=== PATIENT | female | born 1965 | race Caucasian/White ===

== ENCOUNTER 2021-06-15 10:36 | Outpatient (CLI) | payer OTHER, MEDICARE, SELFPAY ==
[2021-06-15 11:09] LABS: Source Nasal/Nares
[2021-06-15 17:27] LABS: COVID-19 PCR Negative (Negative)
== END 2021-06-15 10:37 | disposition home or self-care (01) ==
LOC: LBO 10:36
PROVIDERS: PCP Family Medicine; Visit Provider Podiatrist
DX: Z20.822 Contact with and (suspected) exposure to COVID-19 (principal)
CPT/HCPCS: 87635

== ENCOUNTER 2021-06-18 07:32 | Day surgery (SDC) | payer OTHER, MEDICARE, SELFPAY ==
--- NOTE | 2021-06-17 19:37 | W.PM.HP.N ---
Date of service: 06/18/21 Time of Service: 19:37 History of Present Illness History of Present Illness Chief Complaint: symptomatic left bunion deformity Narrative: 55 YO female with increasing pain associated with herleft bunion deformity. Pain is intrfering with shoe gear and daily activities. Non surgical treatments have failed to provide relief from symptoms. [facility] Medical History Autoimmune hypothyroidism Chronic fatigue Pt. denies this History of basal cell carcinoma (BCC) History of Mohs micrographic surgery for skin cancer Hx of endometriosis Hx of systemic lupus erythematosus (SLE) Hx of traumatic brain injury 1994-from fall Postmenopausal HRT (hormone replacement therapy) Psychophysiological insomnia Rheumatoid arthritis Seasonal affective disorder Sjogren's syndrome Surgical History Hx of appendectomy Hx of cholecystectomy Hx of hysterectomy Social History Smoking/Tobacco Use Status: Never Smoking risk assessment performed?: Yes Alcohol Intake: never Drug use: Never Substance use type: does not use Do you feel safe at home: Yes Do you feel safe in your relationship?: Yes Meds Allergies and Home Medications Allergies Allergy/AdvReac Type Severity Reaction Status Date / Time Egg Derived Allergy Intermediate Skin Rash Unverified 06/16/21 13:11 levofloxacin Allergy Intermediate Skin Rash Unverified 06/16/21 13:11 Home Medications Medication Instructions Recorded Confirmed Type adalimumab [Humira Pen] 40 mg SUBCUT DIRECTED 06/16/21 06/16/21 History amitriptyline 50 - 150 mg PO HS PRN 06/16/21 06/16/21 History conjugated estrogens [Premarin] 0.625 mg PO DAILY 06/16/21 06/16/21 History cyclobenzaprine 5 mg PO TID PRN 06/16/21 06/16/21 History duloxetine 30 mg PO DAILY 06/16/21 06/16/21 History folic acid 2 mg PO DAILY 06/16/21 06/16/21 History gabapentin 900 mg PO HS PRN 06/16/21 06/16/21 History ibuprofen 600 mg PO Q8H PRN 06/16/21 06/16/21 History leucovorin calcium 5 mg PO DAILY 06/16/21 06/16/21 History levothyroxine 112 mcg PO DAILY 06/16/21 06/16/21 History methotrexate sodium [Methotrexate 20 mg PO QWEEK 06/16/21 06/16/21 History (Anti-Rheumatic)] metoclopramide HCl [Reglan] 5 mg PO BID PRN 06/16/21 06/16/21 History sumatriptan succinate 100 mg PO DAILY PRN 06/16/21 06/16/21 History temazepam 15 mg PO DAILY PRN 06/16/21 06/16/21 History trazodone 50 - 150 mg PO HS PRN 06/16/21 06/16/21 History Exam Narrative Exam Narrative: 55 YO female in no acute distress Heads Normo cephalic eyes clear, PERLLA Hearing adequate Uvula is midline Lungs are clear Heart had RRR, no gallops, rubs or murmurs noted Peripheral pulses are 2/4, cft< 3 sec, no edema Muslce groups are 5/5 Large HAV defomity noted left foot Neurologically intact Impressions: HAV deformity left foot Plan: Domi is going to the OR for surgical correction of the left bunion deformity. She understands risks and complications associated with surgery including pain, scarring, infection, over or under correction of the deformity, nerve damage, malunion, delayed union, nonunion of the osteotomy, difficulty tolerating the hardware and the possibility of revision surgery. Informed consent has been obtained.
[2021-06-18 07:40] VITALS: BP 160/90; PULSE 94; TEMP 36.8; O2SAT 99
[2021-06-18] MEDS: Lactated Ringers 1,000 ML 80 ML IV (08:12)
--- NOTE | 2021-06-18 08:40 | W.ANESPRE ---
General Info Date of Service Date Performed: 06/18/21 Height: 5 ft 5 in Weight: 72.2 kg Body Mass Index (BMI): 26.4 Surgical Procedure: Operation Date: 06/18/21 09:10 Proposed Procedures Side Surgeon p Bunionectomy,opening wedge Left Roosevelt Dwain Herr DPM Meds Allergies and Home Medications Allergies Allergy/AdvReac Type Severity Reaction Status Date / Time Egg Derived Allergy Intermediate Skin Rash Unverified 06/18/21 07:45 levofloxacin Allergy Intermediate Skin Rash Unverified 06/18/21 07:45 Home Medication Medication Instructions Recorded adalimumab [Humira Pen] 40 mg SUBCUT DIRECTED 06/16/21 amitriptyline 50 - 150 mg PO HS PRN 06/16/21 conjugated estrogens [Premarin] 0.625 mg PO DAILY 06/16/21 cyclobenzaprine 5 mg PO TID PRN 06/16/21 duloxetine 30 mg PO DAILY 06/16/21 folic acid 2 mg PO DAILY 06/16/21 gabapentin 900 mg PO HS PRN 06/16/21 ibuprofen 600 mg PO Q8H PRN 06/16/21 leucovorin calcium 5 mg PO DAILY 06/16/21 levothyroxine 112 mcg PO DAILY 06/16/21 methotrexate sodium [Methotrexate 20 mg PO QWEEK 06/16/21 (Anti-Rheumatic)] metoclopramide HCl [Reglan] 5 mg PO BID PRN 06/16/21 sumatriptan succinate 100 mg PO DAILY PRN 06/16/21 temazepam 15 mg PO DAILY PRN 06/16/21 trazodone 50 - 150 mg PO HS PRN 06/16/21 Current Visit Medications: Current Medications Generic Name Dose Route Start Last Admin Trade Name Freq PRN Reason Stop Dose Admin Ringer's Solution 1,000 mls @ 80 mls/hr 06/18/21 06:00 06/18/21 08:12 IV 07/17/21 23:59 80 mls/hr INFUSION NALINI Administration Sodium Chloride 500 mls @ 0 mls/hr 06/18/21 06:00 Saline 500ml Bag IV PRN PRN As Directed Cefazolin Sodium/Dextrose 1 gm in 50 mls @ 100 mls/hr 06/18/21 06:00 Ancef Duplex IVPB PREOP NALINI IV Miscellaneous Supplies 1 each 06/18/21 06:00 Iv Access IV 01/08/22 23:59 DIRECTED [facility] IV Miscellaneous Supplies 1 each 06/18/21 06:00 Iv Access IV DIRECTED NALINI Povidone Iodine 0 ml 06/18/21 06:00 Povidone-Iodine Soln. 118 Ml Btl TP DIRECTED NALINI Sodium Chloride 0 ml 06/18/21 06:00 Normal Saline Flush 10 Ml Syr IV 07/17/21 23:59 PRN PRN Sodium Chloride 0 ml 06/18/21 06:00 Normal Saline 10 Ml Vial IJ 07/17/21 23:59 DIRECTED PRN Sodium Chloride 0 ml 06/18/21 06:00 Normal Saline Flush 10 Ml Syr IVP PRN PRN Sterile Water 0 ml 06/18/21 06:00 Water,Injection,Sterile 10 Ml Vial IJ 07/17/21 23:59 DIRECTED PRN PFSH Medical History Medical History Autoimmune hypothyroidism Chronic fatigue Pt. denies this History of basal cell carcinoma (BCC) History of Mohs micrographic surgery for skin cancer Hx of endometriosis Hx of systemic lupus erythematosus (SLE) Hx of traumatic brain injury 1994-from fall Postmenopausal HRT (hormone replacement therapy) Psychophysiological insomnia Rheumatoid arthritis Seasonal affective disorder Sjogren's syndrome Surgical History Surgical History Hx of appendectomy Hx of cholecystectomy Hx of hysterectomy Tobacco Smoking/Tobacco Use Status: Never Alcohol Alcohol Intake: never Substance Use Substance use: Never Substance use type: does not use Vital Signs and Lab Results Vital Signs Most Recent Vital Signs in EMR: Most Recent Vital Signs Temp Pulse BP Pulse Ox 36.8 C 94 H 160/90 H 99 06/18/21 07:40 06/18/21 07:40 06/18/21 07:40 06/18/21 07:40 Lab Results Blood Type / Crossmatch: No Data to Display Complete Blood Count: No Data to Display Complete Metabolic Panel: No Data to Display Liver Function Panel: No Data to Display Coagulation Panel: No Data to Display Cardiac Panel: No Data to Display Arterial Blood Gas: No Data to Display Venous Blood Gas: No Data to Display Pancreas Panel: No Data to Display Thyroid Panel: No Data to Display Infectious Disease: Coronavirus (COVID-19)(PCR) Negative (Negative) 06/15/21 10:30 06/15/21 Coronavirus 2019 Source Nasal/Nares 06/15/21 10:30 06/15/21 Blood Cultures: No Data to Display Toxicology Panel: No Data to Display Panel: No Data to Display Anesthesia Assessment and Plan Anesthesia History Personal History: No History of Anesthesia Complications Family History: No Family History of Anesthesia Complications Exercise Tolerance Exercise Tolerance: Metabolic Equivalents>4 Pertinent Negatives Pertinent Negatives: No Symptoms of GERD, No Major Cardiovascular Symptoms or Complaints and No Major Pulmonary Symptoms or Complaints Cardiac & Pulmonary Exam Cardiac Exam: Normal S1/S2 Heart Sounds Pulmonary Exam: Clear Bilateral Breath Sounds Implantable Cardiac Device Does patient have a Pacemaker or an ICD?: No Airway Exam Known Difficult Airway: No Mallampati Class: 1 Mouth Opening: Normal (> 3cm) Thyromental Distance: Greater than 3 cm Neck Range of Motion: Full ROM Neck Circumference: Normal Teeth Condition: Normal Dentition ASA Classification ASA Score: ASA 2 Emergency Case?: No NPO Status NPO Status: NPO Clears >2 hours, Solids >8 hours Status Status: History of Hysterectomy Anesthesia Plan Resuscitation Status: Full Code Anesthesia Technique: General Anesthesia Airway Planned: Natural Airway Monitors Used: Standard Monitors
[2021-06-18 08:41] VITALS: BMI 26.4
--- NOTE | 2021-06-18 10:00 | DI.RAD_ITS ---
Exam(s) XR FOOT LT LIMITED EXAM: XR FOOT LT LIMITED CLINICAL HISTORY: LEFT FOOT BUNIONECTOMY TECHNIQUE: 2D and realtime digital imaging was performed. CONTRAST MATERIAL: Refer to procedure report. COMPARISON: No exams were available for comparison FINDINGS: Fluoroscopy was provided for Dr. Herr during the performance of a left foot bunionectomy. Please refer to the procedure report for complete details. Ka,r=0.0378 mGy IMPRESSION: RADIATION DOSE DELIVERED:
[2021-06-18] MEDS: Lidocaine 1% Multi-Dose 50 ML VIAL (10:57)
[2021-06-18] MEDS: Bupivacaine 0.5% Pres-Free 30 ML VIAL (10:57)
--- NOTE | 2021-06-18 11:54 | W.PM.DSUDISC ---
Discharge Plan Disposition Patient Disposition: HOME Condition: Good Discharge Details Reason For Visit: Correction left HAV deformity Attending Provider: Roosevelt Herr Primary Care Provider: ,Local Home Meds and New Rx's Prescriptions: New oxycodone-acetaminophen 5-325 mg tablet 1 tab PO Q6H PRN (Reason: pain) Qty: 14 RF: 0 ibuprofen 600 mg tablet 600 mg PO Q6H PRN (Reason: Pain and inflammation) Qty: 60 RF: 1 Continued trazodone 50 mg Tablet 50 - 150 mg PO HS PRN (Reason: Sleep) RF: 0 sumatriptan succinate 100 mg Tablet 100 mg PO DAILY PRNRF: 0 amitriptyline 50 mg Tablet 50 - 150 mg PO HS PRN (Reason: Sleep) RF: 0 metoclopramide HCl [Reglan] 5 mg Tablet 5 mg PO BID PRN (Reason: Nausea) RF: 0 temazepam 15 mg Capsule 15 mg PO DAILY PRN (Reason: Sleep) RF: 0 methotrexate sodium 2.5 mg Tablet 20 mg PO QWEEK RF: 0 Premarin 0.625 mg Tablet 0.625 mg PO DAILY RF: 0 leucovorin calcium 5 mg Tablet 5 mg PO DAILY RF: 0 folic acid 1 mg Tablet 2 mg PO DAILY RF: 0 ibuprofen 600 mg Tablet 600 mg PO Q8H PRNRF: 0 levothyroxine 112 mcg Tablet 112 mcg PO DAILY RF: 0 cyclobenzaprine 5 mg Tablet 5 mg PO TID PRNRF: 0 gabapentin 300 mg Tablet 900 mg PO HS PRN (Reason: Pain) RF: 0 Humira Pen 40 mg/0.8 mL Pen Injector Kit 40 mg SUBCUT DIRECTED RF: 0 duloxetine 30 mg Capsule, Delayed Rel Sprinkle 30 mg PO DAILY RF: 0 Discharge Instructions Equipment/Supplies: Non-Weight Bearing Crutches Activity:: Elevate Remove Dressings/Wound Care:: Do Not Remove Shower/Bathe:: Cover Diet:: Normal Diet Discharge Orders Discharge Orders: Discharge Order (Routine); Ordered 06/18/21 Ordered By: Roosevelt Herr DS: Diagnosis Discharge Diagnosis (1) Hallux valgus of left foot: Status: Acute
--- NOTE | 2021-06-18 11:58 | ROE_ITS ---
Date of service: 06/18/21 Time of Service: 11:58 Operative Note Operative Note DATE OF PROCEDURE: 06/18/21 PRE-OP DIAGNOSIS: HAV deformity left foot POST-OP DIAGNOSIS: same PROCEDURE: Opening base wedge osteotomy with modified Jovi osteotomy left first metatarsal SURGEON: Roosevelt Herr ANESTHESIA TYPE: General:No Airway Refer to Anesthesia Record ESTIMATED BLOOD LOSS: 2 PATHOLOGY: none sent TOURNIQUET TIME: 110 COMPLICATIONS: None Patient was transported to: same day Patient's condition: stable Implants: Arthrex opening wedge plate, 5 mm, with 4 locking screws, 2.4 mm Arthrex screw in the first metatarsal head Indications: 55-year-old female with increasing pain associated with a left bunion deformity which has not responded to nonoperative treatments. She has difficulty with weightbearing and shoe gear due to pain and is seeking surgical relief. Procedure Description: And was brought to the operative suite placed in the supine position with the left foot prepped and draped in the usual sterile podiatric fashion. Timeout was performed for safe surgery. The first ray was anesthetized with a total of 20 cc 1% lidocaine plain 0.5% Marcaine plain. The left foot was exsanguinated well-padded ankle tourniquet inflated 250 mmHg. Attention was directed to the first metatarsal phalangeal joint where a 4 cm incision was made medial to the EHL tendon. Incision was deepened in controlled depth fashion hemostasis acquired with electrocautery dissection was carried down to the joint capsule. A lateral dissection was performed consisting of a adductor tendon release, lateral capsulotomy. Attention was directed medially where an inverted L capsulotomy was performed the capsule was reflected in the first metatarsal head delivered into the wound. Hypertrophy was noted along the medial aspect of the first metatarsal head with cartilaginous degradation noted affecting the medial portion of the head with power instrumentation the medial hyperostosis was resected and the bone saved for morselization purposes. Attention was now directed to the base of the first metatarsal where a incision was made starting just proximal of the first metatarsocuneiform joint and extending approximately 3 cm distally along the medial side of the foot. The incision was deepened in controlled depth fashion. Neurovascular structures were identified and reflected dorsally and plantarly. Dissection was carried down to the periosteum. The joint first metatarsocuneiform was identified and the periosteum opened just distal to the joint a guide K wire was inserted lateral dorsal ankle identified the lateral edge of the first metatarsal and utilizing a 138 blade an osteotomy was made approximately a centimeter distal from the joint line. Utilizing osteotomes the medial side of the osteotomy was wedged open and I settled on a 5 mm opening wedge plate for correction of the deformity. C arm was utilized to visualize the correction. The plate was secured utilizing 4 locking plate Arthrex screws. C-arm visualization that the screws were properly placed was performed. The osteotomy gap was then packed with the morselized bone from the medial resection from the first metatarsal head as well as [employer] moldable demineralized fiber. 2.5 cc or on the table available for packing with an expiration date of 2023-12-19. Irrigation was gently performed and the periosteum closed with 3-0 Vicryl. A wet sponge was then applied over this incision and attention redirected to the first metatarsal head. The articular surface of the first metatarsal head was laterally rotated and a Jovi type osteotomy performed so as to D rotate the first metatarsal head. This was accomplished successfully and fixated with a 2.4 Arthrex screw. The medial shelf was further resected and rasped smooth. Copious irrigation was performed. Good correction of the deformity and stability of the osteotomy was noted. The joint capsule was repaired with simple interrupted suture 3-0 Vicryl after performing a medial capsulorrhaphy. Subcutaneous layer was repaired with 4-0 Vicryl on both incision regions and the skin was then closed with continuous running suture 4-0 nylon to both incisions. Xeroform gauze fluff compression dressings were applied. Tourniquet was released at 110 minutes with vascularity returning immediately to the left foot. The posterior splint that was well-padded was applied. And left the OR with vital signs stable vascular status intact sharp and sponge counts were correct. She will remain nonweightbearing on the left lower extremity and follow-up in the office next week.
[2021-06-18 12:17] VITALS: BP 139/85; PULSE 81; RESP 18; TEMP 36.2; O2SAT 97
[2021-06-18 12:25] VITALS: BP 144/86; PULSE 76; RESP 18; TEMP 36.6; O2SAT 99
--- NOTE | 2021-06-18 12:54 | PT.INIE ---
Date of service: 06/18/21 Time of Service: 12:54 PT Notes Visit Reasons: Correction left HAV deformity Physical Therapy Day Surgery Initial Evaluation Date: 06/18/2021 Referring Doctor: Roosevelt Herr MD PT Orders: PT CONSULT: Safety Consult for D/C. Precautions: NWB on L LE with AD. Patient Profile/Admitting Diagnosis: Domi is a 55-year-old female who has hallux abducto valgus deformity of the L foot and is S/P opening base wedge osteotomy with modified Jovi osteotomy of the L first metatarsal. PMHX: Medical History Autoimmune hypothyroidism Chronic fatigue Pt. denies this History of basal cell carcinoma (BCC) History of Mohs micrographic surgery for skin cancer Hx of endometriosis Hx of systemic lupus erythematosus (SLE) Hx of traumatic brain injury 1994-from fall Postmenopausal HRT (hormone replacement therapy) Psychophysiological insomnia Rheumatoid arthritis Seasonal affective disorder Sjogren's syndrome Surgical History Hx of appendectomy Hx of cholecystectomy Hx of hysterectomy Social History/Home Situation: Lives with in a private home with 3-4 steps to enter with no rail. Independent with all aspects of ADLs prior to surgery. No falls in the past year. Equipment Owned/DME: Bilateral axillary crutches, SPC Subjective: Agreeable to PT consult. Reports 5-6/10 pain in the R foot at rest and with weight bearing. Denies headache, chest pain, and lightheadedness through out session. Objective: General Observation: Supine in stretcher. Posterior splint over compression dressing on R LE. Mental Status: Alert and oriented x 4 Pain: 5-6/10 pain in the R leg and foot at rest and with weight bearing ROM: Right Upper Extremity: Shoulder Flexion WFL. Shoulder abduction WFL. Elbow flexion WFL. Wrist flexion WFL. Functional opening and closing of hand WFL. Left Upper Extremity: Shoulder Flexion WFL. Shoulder abduction WFL. Elbow flexion WFL. Wrist flexion WFL. Functional opening and closing of hand WFL. Right Lower Extremity: Hip flexion WFL. Hip abduction WFL. Knee flexion WFL. Ankle dorsiflexion NT. Ankle plantarflexion NTL. Left Lower Extremity: Hip flexion WFL. Hip abduction WFL. Knee flexion WFL. Ankle dorsiflexion WFL. Ankle plantarflexion WFL. Strength: Right Upper Extremity: Shoulder flexors 5/5. Shoulder abductors 5/5. Elbow flexors 5/5. Elbow extensors 5/5. Steward/Stewardess Third strong. Left Upper Extremity: Shoulder flexors 5/5. Shoulder abductors 5/5. Elbow flexors 5/5. Elbow extensors 5/5. Steward/Stewardess Third strong. Right Lower Extremity: Hip flexors 5/5. Hip abductors 5/5. Knee flexors 4/5. Knee extensors 4/5. Ankle dorsiflexors NT. Ankle plantarflexors NT. Left Lower Extremity:Hip flexors 5/5. Hip abductors 5/5. Knee flexors 5/5. Knee extensors 5/5. Ankle dorsiflexors 5/5. Ankle plantarflexors 5/5. Sensation: Intact as to pain and light pressure in L LE Bed Mobility/Transfers: Supine to sit independent Sit to stand standby assist Stand to sit standby assist Bed to chair standby assist Gait: Tolerated level surface ambulation of 30 feet +30 feet using bilateral axillary crutches with non weight bearing on the left LE. Stand by assist only with minimal verbal cueing for safe directional changes. Balance: Static Sitting: Normal Dynamic Sitting: Normal Static Standing: Fair Dynamic Standing: Fair Special Tests: Mobility Limitations Standardized Measure [facility] AM-PAC 6 clicks Basic Mobility Inpatient Short Form: Raw Score: 23 CMS Score: 11% deficit Informed Consent/Education: Patient instructed in purpose of PT consult. Education and training on safe ambulation with recommended AD and WB precaution emphasized in today's session. Assessment: Domi requires the use of bilateral axillary crutches for all transfers and ambulation task performance. She demonstrates 100% compliance of weight bearing precaution by genetic engineer. Patient presents with clinical signs and symptoms consistent with current/admitting diagnoses that have resulted to mobility limitations, gait instability, generalized weakness, and impairment of motor control as demonstrated by the following impairment level findings: 1. Decreased strength to R ankle and foot major muscle groups 2. Impaired standing balance 3. Limitation of joint range of motion in right ankle 4. Pain in R LE, postoperative Impairments are contributing to the following functional limitations: 1. Inability to safely ambulate without assistive device 2. Increase completion time for mobility ADL performance 3. Increased fall risk Patient is assessed as a 53497 moderate complexity based on the following: History: 85-year-old female with impairment level findings, functional limitations, and past medical history as indicated above Examination: Demonstrable impairment in strength, balance, and mobility level with underlying impairments and functional limitations as documented above Presentation: Evolving Decision Makin moderate complexity Goals: N/A. PT evaluation and 1-2 treatment sessions only for functional mobility training using recommended AD and while observing weight bearing precautions. Plan of Care/Treatment Plan: N/A. PT evaluation and 1-2 treatment sessions only for functional mobility training using recommended AD and while observing weight bearing precautions. DISCHARGE RECOMMENDATIONS: [] Home with no services [] [X] Home with services [specify] [X] Home with outpatient PT. Home when medically cleared by genetic engineer. May benefit from outpatient PT services when cleared by genetic engineer to regain independent ambulation in the community without an assistive device while reducing fall risk. [] SNF for continued rehabilitation [] [] Assisted Care [] [] SNF versus LTC based on ability to participate and progress [] TREATMENT CODE/TIME: 83721 x 24 minutes beginning at 12:54 PM. Thank you for the opportunity to participate in the care of this patient. Hansa Pleitez PT, DPT, CLT [facility] [place], [place]
--- NOTE | 2021-06-22 19:32 | W.ANESPOSTOP ---
Postoperative Evaluation Date, Time and Location Date Performed: 06/22/21 Time Performed: 19:32 Patient Location: Day Surgery Unit Vital Signs Most Recent Imported Vital Signs: Most Recent Vital Signs Temp Pulse Resp BP Pulse Ox 36.6 C 76 18 144/86 H 99 06/18/21 12:25 06/18/21 12:25 06/18/21 12:25 06/18/21 12:25 06/18/21 12:25 Pain Score Most Recent Pain Score: Most Recent Pain Score Pain Level 0 06/18/21 12:25 Assessment Mental Status: Awake (Alert & Oriented to Patient Baseline) Airway and Respiratory Function: Patent airway with normal (patient baseline) respiratory exam Cardiovascular Function: Hemodynamically Stable Hydration Status: Adequately Hydrated Nausea & Vomiting: No Nausea or Vomiting Pain: Pt. Denies Any Pain Peripheral Nerve Block: Patient did not receive a nerve block Postoperative Comments:: Patient was seen on DOS and postop was not filed erroneously.
== END 2021-06-18 13:50 | disposition home or self-care (01) ==
PROVIDERS: Visit Provider Podiatrist
PROC: (CPT 28292; principal; 2021-06-18 09:00)
DX: M20.12 Hallux valgus (acquired), left foot (principal); E06.3 Autoimmune thyroiditis; M06.9 Rheumatoid arthritis, unspecified; M35.00 Sjogren syndrome, unspecified
CPT/HCPCS: 28296; 97162; 73620; J0690; J1100; J1885; J2001; J2405; J3010

== ENCOUNTER 2022-01-19 02:25 | Outpatient (CLI) | payer OTHER, MEDICARE, SELFPAY | END 2022-01-19 02:26 | disposition home or self-care (01) | PROVIDERS: Visit Provider Podiatrist ==

== ENCOUNTER 2022-01-20 15:40 | Outpatient (REF) | payer OTHER, MEDICARE, SELFPAY ==
[2022-01-22 14:55] LABS: COVID-19 RT-PCR UVMMC Result Negative (Negative)
== END 2022-01-20 15:41 | disposition home or self-care (01) ==
LOC: LBN 15:40
PROVIDERS: Visit Provider Podiatrist
DX: Z20.822 Contact with and (suspected) exposure to COVID-19 (principal); Z01.818 Encounter for other preprocedural examination
CPT/HCPCS: U0003

== ENCOUNTER 2022-01-21 07:18 | Day surgery (SDC) | payer OTHER, MEDICARE, SELFPAY ==
--- NOTE | 2022-01-20 20:55 | W.PM.HP.N ---
Date of service: 01/21/22 History of Present Illness History of Present Illness Chief Complaint: symptomatic hardware left foot Narrative: 56 YO female s/p bunionectomy 06-18-21 with discomfort associated with retained hardware in the 1st metatarsal, left foot. PFSH All Active Problems Hallux valgus of left foot (Acute) Medical History Autoimmune hypothyroidism Chronic fatigue Pt. denies this History of basal cell carcinoma (BCC) History of Mohs micrographic surgery for skin cancer Hx of endometriosis Hx of systemic lupus erythematosus (SLE) Hx of traumatic brain injury 1993-from fall-remote under control no issues Postmenopausal HRT (hormone replacement therapy) Psychophysiological insomnia Rheumatoid arthritis Seasonal affective disorder Sjogren's syndrome Surgical History Hx of appendectomy Hx of cholecystectomy Hx of hysterectomy Social History Smoking/Tobacco Use Status: Never Smoking risk assessment performed?: Yes Alcohol Intake: never Drug use: Never Substance use type: does not use Do you feel safe at home: Yes Do you feel safe in your relationship?: Yes Meds Allergies and Home Medications Allergies Allergy/AdvReac Type Severity Reaction Status Date / Time Egg Derived Allergy Intermediate Skin Rash Unverified 01/20/22 10:22 levofloxacin Allergy Intermediate Skin Rash Unverified 01/20/22 10:22 Home Medications Medication Instructions Recorded Confirmed Type adalimumab 40 mg/0.8 mL 40 mg subcut DIRECTED 06/16/21 01/20/22 History subcutaneous pen kit (Humira Pen) amitriptyline 50 mg tablet 50 - 150 mg PO HS PRN Sleep 06/16/21 01/20/22 History conjugated estrogens 0.625 mg 0.625 mg PO DAILY 06/16/21 01/20/22 History tablet (Premarin) cyclobenzaprine 5 mg tablet 5 mg PO TID PRN 06/16/21 01/20/22 History duloxetine 30 mg capsule,delayed 30 mg PO DAILY 06/16/21 01/20/22 History release sprinkle folic acid 1 mg tablet 2 mg PO DAILY 06/16/21 01/20/22 History gabapentin 300 mg tablet 900 mg PO HS PRN Pain 06/16/21 01/20/22 History ibuprofen 600 mg tablet 600 mg PO Q8H PRN 06/16/21 01/20/22 History leucovorin calcium 5 mg tablet 5 mg PO DAILY 06/16/21 01/20/22 History levothyroxine 112 mcg tablet 112 mcg PO DAILY 06/16/21 01/20/22 History methotrexate sodium 2.5 mg tablet 20 mg PO QWEEK 06/16/21 01/20/22 History metoclopramide HCl 5 mg tablet 5 mg PO BID PRN Nausea 06/16/21 01/20/22 History (Reglan) sumatriptan succinate 100 mg tablet 100 mg PO DAILY PRN 06/16/21 01/20/22 History temazepam 15 mg capsule 15 mg PO DAILY PRN Sleep 06/16/21 01/20/22 History trazodone 50 mg tablet 50 - 150 mg PO HS PRN Sleep 06/16/21 01/20/22 History ibuprofen 600 mg tablet 600 mg PO Q6H PRN Pain and 06/18/21 01/20/22 Rx inflammation #60 tabs oxycodone-acetaminophen 5 mg-325 1 tab PO Q6H PRN pain #14 tabs 06/18/21 01/20/22 Rx mg tablet Exam Narrative Exam Narrative: 56 YO female with discomfort associated with retained hardware at the base of the left 1st metatarsal. Symptoms arise when in shoe gear and are interfering with daily activity. Heads normocephalic hearing adequate eyes PERRLA uvula is midline Heart has RRR, no gallops rubs, or murmurs abdomen is soft, BS x 4 Peripheral pulses are palpable, no edema tenderness is noted with palpation over the dorso and dorsomedial aspect of the base of the left 1st metatarsl when a plate with screws is palpable. Domi understands the risks and potential complications of surgery to include pain, scarring, infection, fracture of the bone, inability to remove the hardware, nerve injury. All questiopns have been answered. Informed consent obtained.
[2022-01-21 07:29] LABS: Source Nasal/Nares
[2022-01-21 07:30] VITALS: BP 138/85; PULSE 77; RESP 16; TEMP 36.2; O2SAT 99
--- NOTE | 2022-01-21 07:58 | W.ANESPRE ---
General Info Date of Service Date Performed: 01/21/22 Height: 5 ft 5 in Weight: 80.9 kg Body Mass Index (BMI): 29.7 Surgical Procedure: Operation Date: 01/21/22 09:55 Proposed Procedure Side Surgeon p Hardware Removal Foot Left Roosevelt Herr DPM Meds Allergies and Home Medications Allergies Allergy/AdvReac Type Severity Reaction Status Date / Time Egg Derived Allergy Intermediate Skin Rash Unverified 01/21/22 07:38 levofloxacin Allergy Intermediate Skin Rash Unverified 01/21/22 07:38 Home Medication Medication Instructions Recorded adalimumab 40 mg/0.8 mL 40 mg subcut DIRECTED 06/16/21 subcutaneous pen kit (Humira Pen) amitriptyline 50 mg tablet 50 - 150 mg PO HS PRN Sleep 06/16/21 conjugated estrogens 0.625 mg 0.625 mg PO DAILY 06/16/21 tablet (Premarin) cyclobenzaprine 5 mg tablet 5 mg PO TID PRN 06/16/21 duloxetine 30 mg capsule,delayed 30 mg PO DAILY 06/16/21 release sprinkle folic acid 1 mg tablet 2 mg PO DAILY 06/16/21 gabapentin 300 mg tablet 900 mg PO HS PRN Pain 06/16/21 ibuprofen 600 mg tablet 600 mg PO Q8H PRN 06/16/21 leucovorin calcium 5 mg tablet 5 mg PO DAILY 06/16/21 levothyroxine 112 mcg tablet 112 mcg PO DAILY 06/16/21 methotrexate sodium 2.5 mg tablet 20 mg PO QWEEK 06/16/21 metoclopramide HCl 5 mg tablet 5 mg PO BID PRN Nausea 06/16/21 (Reglan) sumatriptan succinate 100 mg tablet 100 mg PO DAILY PRN 06/16/21 temazepam 15 mg capsule 15 mg PO DAILY PRN Sleep 06/16/21 trazodone 50 mg tablet 50 - 150 mg PO HS PRN Sleep 06/16/21 ibuprofen 600 mg tablet 600 mg PO Q6H PRN Pain and 06/18/21 inflammation #60 tabs oxycodone-acetaminophen 5 mg-325 1 tab PO Q6H PRN pain #14 tabs 06/18/21 mg tablet Current Visit Medications: Current Medications Generic Name Dose Route Start Last Admin Trade Name Freq PRN Reason Stop Dose Admin Ringer's Solution 1,000 mls @ 80 mls/hr 01/21/22 06:00 IV 02/19/22 23:59 INFUSION NALINI Sodium Chloride 500 mls @ 0 mls/hr 01/21/22 06:00 Saline 500ml Bag IV PRN PRN As Directed Cefazolin Sodium/Dextrose 1 gm in 50 mls @ 100 mls/hr 01/21/22 06:00 Ancef Duplex IVPB 01/21/22 18:00 PREOP NALINI IV Miscellaneous Supplies 1 each 01/21/22 06:00 Iv Access IV 02/19/22 23:59 DIRECTED NALINI IV Miscellaneous Supplies 1 each 01/21/22 06:00 Iv Access IV DIRECTED NALINI Povidone Iodine 0 ml 01/21/22 06:00 Povidone-Iodine Soln. 118 Ml Btl TP DIRECTED NALINI Sodium Chloride 0 ml 01/21/22 06:00 Normal Saline Flush 10 Ml Syr IV 02/19/22 23:59 PRN PRN Sodium Chloride 0 ml 01/21/22 06:00 Normal Saline 10 Ml Vial IJ 02/19/22 23:59 DIRECTED PRN Sodium Chloride 0 ml 01/21/22 06:00 Normal Saline Flush 10 Ml Syr IVP PRN PRN Sterile Water 0 ml 01/21/22 06:00 Water,Injection,Sterile 10 Ml Vial IJ 02/19/22 23:59 DIRECTED PRN PFSH Active Problems Active Problems: Problem Status Onset Code Hallux valgus of left foot M20.12 Medical History Medical History Autoimmune hypothyroidism Chronic fatigue Pt. denies this History of basal cell carcinoma (BCC) History of Mohs micrographic surgery for skin cancer Hx of endometriosis Hx of systemic lupus erythematosus (SLE) Hx of traumatic brain injury 1993-from fall-remote under control no issues Postmenopausal HRT (hormone replacement therapy) Psychophysiological insomnia Rheumatoid arthritis Seasonal affective disorder Sjogren's syndrome Surgical History Surgical History Hx of appendectomy Hx of cholecystectomy Hx of hysterectomy Tobacco Smoking/Tobacco Use Status: Never Alcohol Alcohol Intake: never Substance Use Substance use: Never Substance use type: does not use Vital Signs and Lab Results Vital Signs Most Recent Vital Signs in EMR: Most Recent Vital Signs Temp Pulse Resp BP Pulse Ox 36.2 C L 77 16 138/85 99 01/21/22 07:30 01/21/22 07:30 01/21/22 07:30 01/21/22 07:30 01/21/22 07:30 Lab Results Blood Type / Crossmatch: No Data to Display Complete Blood Count: No Data to Display Complete Metabolic Panel: No Data to Display Liver Function Panel: No Data to Display Coagulation Panel: No Data to Display Cardiac Panel: No Data to Display Arterial Blood Gas: No Data to Display Venous Blood Gas: No Data to Display Pancreas Panel: No Data to Display Thyroid Panel: No Data to Display Infectious Disease: Coronavirus (COVID-19)(PCR) Negative (Negative) 01/21/22 07:25 Coronavirus 2019 Source Nasal/Nares 01/21/22 07:25 Blood Cultures: No Data to Display Toxicology Panel: No Data to Display Anesthesia Assessment and Plan Anesthesia History Personal History: No History of Anesthesia Complications Family History: No Family History of Anesthesia Complications Exercise Tolerance Exercise Tolerance: Metabolic Equivalents>4 Pertinent Negatives Pertinent Negatives: No Symptoms of GERD, No Major Cardiovascular Symptoms or Complaints and No Major Pulmonary Symptoms or Complaints Cardiac & Pulmonary Exam Cardiac Exam: Normal S1/S2 Heart Sounds Pulmonary Exam: Clear Bilateral Breath Sounds Implantable Cardiac Device Does patient have a Pacemaker or an ICD?: No Airway Exam Known Difficult Airway: No Mallampati Class: 2 Mouth Opening: Normal (> 3cm) Thyromental Distance: Greater than 3 cm Neck Range of Motion: Full ROM Neck Circumference: Normal Teeth Condition: Normal Dentition (Partials left at home) ASA Classification ASA Score: ASA 2 Emergency Case?: No NPO Status NPO Status: NPO Clears >2 hours, Solids >8 hours Anesthesia Plan Resuscitation Status: Full Code Anesthesia Technique: General Anesthesia Airway Planned: Natural Airway Monitors Used: Standard Monitors
[2022-01-21] MEDS: Lactated Ringers 1,000 ML 80 ML IV (08:21)
[2022-01-21 08:46] LABS: COVID-19 PCR Negative (Negative)
[2022-01-21 09:13] VITALS: BMI 29.7
[2022-01-21] MEDS: ceFAZolin 1 GM/50 ML BAG IVPB (09:38)
[2022-01-21] MEDS: Lidocaine 1% Pres-Free 30 ML VIAL (09:42)
[2022-01-21] MEDS: Bupivacaine 0.5% Pres-Free 30 ML VIAL (09:42)
--- NOTE | 2022-01-21 10:03 | ROE_ITS ---
Date of service: 01/21/22 Time of Service: 10:03 Operative Note Operative Note DATE OF PROCEDURE: 01/21/22 PRE-OP DIAGNOSIS: symptomatic hardware PROCEDURE: removal hardware left 1st metatarsal SURGEON: Roosevelt Herr Refer to Anesthesia Record ESTIMATED BLOOD LOSS: 0 PATHOLOGY: none sent TOURNIQUET TIME: 15 COMPLICATIONS: None Indications: 60-year-old female status post bunionectomy procedure June 2021 with incr easing discomfort associated with retained hardware first metatarsal left foot. Pain is interfering with shoe gear and normal activities. She is being brought to the OR for removal of implanted hardware. Risk and complications have been discussed. The potential for pain, scarring, infection, nerve injury discussed. No promises made to final outcome of surgery. Procedure Description: And was brought to the operative suite placed in supine position with the left foot prepped and draped in usual sterile podiatric fashion. Timeout was performed for safe surgery. Anesthesia being achieved the left foot was exsanguinated well-padded ankle tourniquet inflated 250 mmHg. Attention was directed to the medial aspect of the base of the first metatarsal. The hardware is easily palpable through the skin with local irritation was noted. With a #10 scalpel incision was placed over the previous cicatrix. Hemostasis acquired with electrocautery as needed. With a #15 scalpel the incision was deepened and brought down to the periosteal layer. The periosteum was incised and the hardware was dissected. I was easily able to see the plate and 4 locking screws. The proximal and distal screws was subsequently removed without difficulty and the plate was removed from the bone utilizing a [place] elevator. The wound was copiously irrigated. No pathology was noted. The underlying osteotomy is fully healed. The wound was subsequently closed with 4-0 Vicryl to reduce the periosteum followed by 4-0 Monocryl to bring the subcuticular layer t ogether. Mastisol quarter-inch Steri-Strips applied. Tourniquet was released to 15 minutes with vascularity returning immediately to all toes. And left the OR with vital signs stable vascular status intact sharp and sponge counts were correct. She will be followed by myself next week in the office. Dictated with Felicia naturally speaking. Document not reviewed for Shaper Set Up Operator accuracy
[2022-01-21 10:05] VITALS: BP 101/57; PULSE 72; RESP 16; TEMP 36; O2SAT 98
--- NOTE | 2022-01-21 10:08 | W.PM.DS.N ---
Date of service: 01/21/22 Time of Service: 10:08 DS: Diagnosis Discharge Diagnosis (1) Painful orthopaedic hardware: Start date: 01/21/22 Start time: 10:10 Status: Acute Asessment and Plan: Removal of symptomatic hardware left foot Discharge Plan Disposition Patient Disposition: HOME Condition: Good Discharge Details Reason For Visit: Removal of symptomatic hardware left first Attending Provider: Roosevelt Herr Primary Care Provider: ,Local Home Meds and New Rx's Prescriptions: No Action trazodone 50 mg Tablet 50 - 150 mg PO HS PRN (Reason: Sleep) Rx Instructions: 1-3 tabs hs prn sleep sumatriptan succinate 100 mg Tablet 100 mg PO DAILY PRN Rx Instructions: may repeat in 1 hour amitriptyline 50 mg Tablet 50 - 150 mg PO HS PRN (Reason: Sleep) Rx Instructions: 2-3 tabs hs prn sleep metoclopramide HCl [Reglan] 5 mg Tablet 5 mg PO BID PRN (Reason: Nausea) temazepam 15 mg Capsule 15 mg PO DAILY PRN (Reason: Sleep) methotrexate sodium 2.5 mg Tablet 20 mg PO QWEEK Rx Instructions: labs Q 3-4 months Premarin 0.625 mg Tablet 0.625 mg PO DAILY leucovorin calcium 5 mg Tablet 5 mg PO DAILY Rx Instructions: take 2 hours after methotrexate folic acid 1 mg Tablet 2 mg PO DAILY ibuprofen 600 mg Tablet 600 mg PO Q8H PRN levothyroxine 112 mcg Tablet 112 mcg PO DAILY cyclobenzaprine 5 mg Tablet 5 mg PO TID PRN gabapentin 300 mg Tablet 900 mg PO HS PRN (Reason: Pain) Humira Pen 40 mg/0.8 mL Pen Injector Kit 40 mg SUBCUT DIRECTED Label Comments: This may have been d/c.HE duloxetine 30 mg Capsule, Delayed Rel Sprinkle 30 mg PO DAILY Rx Instructions: Do not take reglan on the same day. oxycodone-acetaminophen 5-325 mg tablet 1 tab PO Q6H PRN (Reason: pain) Qty: 14 0RF ibuprofen 600 mg tablet 600 mg PO Q6H PRN (Reason: Pain and inflammation) Qty: 60 1RF Discharge Instructions Activity:: Elevate Remove Dressings/Wound Care:: Do Not Remove Shower/Bathe:: Cover Diet:: Normal Diet Discharge Orders Discharge Orders: Discharge Order (Routine); Ordered 01/21/22 Ordered By: Roosevelt Herr DS: Summary Time Spent with Patient providing and/or coordinating discharge services: Less than 30 minutes Status at Discharge Functional status at discharge: independent ambulation Overall status at discharge: patient is back to baseline Mental Status: mental status grossly normal Speech and Movement: speech and movement normal Mood: congruent mood Affect: normal affect Exam Psych Mental Status: mental status grossly normal Speech and Movement: speech and movement normal Mood: congruent mood Affect: normal affect DS: Data Vitals/I&O Vitals and I&O: Vital Signs Temperature 36.2 C L 01/21/22 07:30 Pulse 77 01/21/22 07:30 Pulse Rhythm Regular 01/21/22 07:30 Respiratory Rate 16 01/21/22 07:30 Respiratory Depth Deep 01/21/22 07:30 Blood Pressure 138/85 01/21/22 07:30 Pulse Oximetry 99 01/21/22 07:30 Oxygen Delivery Method Room Air 01/21/22 07:30 Oxygen Flow Rate 0 01/21/22 07:30 Pain Level 7 01/21/22 07:30 Intake & Output 01/20/22 01/21/22 01/21/22 18:59 06:59 18:59 Intake Total 700 / 700 Balance 700 / 700 Weight 72.2 kg 80.9 kg Intake: IV 700 / 700 Data Completed and Pending Labs on day of discharge: Labs from last 24 hours 01/21/22 07:25 COVID-19 Source Nasal/Nares SARS-CoV-2 (PCR) Negative PFSH All Active Problems Painful orthopaedic hardware (Acute) Hallux valgus of left foot (Acute) Medical History Autoimmune hypothyroidism Chronic fatigue Pt. denies this History of basal cell carcinoma (BCC) History of Mohs micrographic surgery for skin cancer Hx of endometriosis Hx of systemic lupus erythematosus (SLE) Hx of traumatic brain injury 1993-from fall-remote under control no issues Postmenopausal HRT (hormone replacement therapy) Psychophysiological insomnia Rheumatoid arthritis Seasonal affective disorder Sjogren's syndrome Surgical History Hx of appendectomy Hx of cholecystectomy Hx of hysterectomy Social History Smoking/Tobacco Use Status: Never Smoking risk assessment performed?: Yes Alcohol Intake: never Drug use: Never Substance use type: does not use Do you feel safe at home: Yes Do you feel safe in your relationship?: Yes
[2022-01-21 10:35] VITALS: BP 116/83; PULSE 69; RESP 18; TEMP 35.9; O2SAT 100
--- NOTE | 2022-01-21 10:39 | W.ANESPOSTOP ---
Postoperative Evaluation Date, Time and Location Date Performed: 01/21/22 Time Performed: 10:39 Patient Location: Day Surgery Unit Vital Signs Most Recent Imported Vital Signs: Most Recent Vital Signs Temp Pulse Resp BP Pulse Ox 36.0 C L 72 16 101/57 L 98 01/21/22 10:05 01/21/22 10:05 01/21/22 10:05 01/21/22 10:05 01/21/22 10:05 Pain Score Most Recent Pain Score: Most Recent Pain Score Pain Level 0 01/21/22 10:05 Assessment Mental Status: Awake (Alert & Oriented to Patient Baseline) Airway and Respiratory Function: Patent airway with normal (patient baseline) respiratory exam Cardiovascular Function: Hemodynamically Stable Hydration Status: Adequately Hydrated Nausea & Vomiting: No Nausea or Vomiting Pain: Pt. Denies Any Pain Peripheral Nerve Block: Patient did not receive a nerve block
== END 2022-01-21 10:52 | disposition home or self-care (01) ==
PROVIDERS: Visit Provider Podiatrist
PROC: (CPT 20680; principal; 2022-01-21 09:45)
DX: T84.84XA Pain due to internal orthopedic prosthetic devices, implants and grafts, initial encounter (principal); M89.8X7 Other specified disorders of bone, ankle and foot; E06.3 Autoimmune thyroiditis
CPT/HCPCS: 20680; 87635; J0690; J1100; J1885; J2405